=== PATIENT | female | born 1950 | race Caucasian/White ===

== ENCOUNTER → 2018-01-21 12:40 | Outpatient (CLI) | payer MEDICARE, OTHER, SELFPAY ==
--- NOTE | 2018-01-21 12:44 | DI.MRI.S_ITS ---
PROCEDURE: MR LUMBAR SPINE WO CON INDICATIONS: L4-5 HMP TECHNIQUE: Noncontrast sagittal T1 spin echo and T2 fast echo, sagittal STIR, axial T1 and T2 fast spin echo through the lumbar spine. In cases with scoliosis, additional coronal T2 fast spin echo may be performed. COMPARISON: [facility], , L-SPINE WITHOUT CONTRAST, 01/14/2016, 10:57. FINDINGS: Image quality: Excellent. Alignment and Curvature: There is normal bony alignment. Bone Marrow: Marrow is of normal overall signal. No acute vertebral body compression fractures. Spinal Cord: Conus medullaris terminates at the T12 level. Visualized cord demonstrates normal signal and size. Paraspinous Soft Tissues: No paravertebral masses. Of note, there is moderate epidural lipomatosis from L2-S1 which is a new finding when compared with the study dated 01/14/16. This results in overall narrowing of the thecal sac throughout the lumbar spine. T12-L1: Mild disc desiccation and height loss. Small central disc protrusion which measures 5 mm in AP diameter and is unchanged in size when compared with the prior study dated 01/14/16. There is mild canal stenosis, unchanged from the prior study. Mild facet ligamentum flavum hypertrophy. No foraminal stenosis. L1-L2: Moderate disc desiccation and height loss. Moderate facet and ligamentum flavum hypertrophy. No canal stenosis. Mild bilateral neural foraminal narrowing. These findings are similar in extent to the study dated 01/14/16. L2-L3: Severe disc desiccation and height loss. Broad-based disc bulge. Severe facet ligamentum flavum hypertrophy. Severe canal stenosis. The degree of canal narrowing has increased when compared with the prior study. Moderates right foraminal narrowing which is increased when compared with the prior study. Unchanged mild left foraminal narrowing. L3-L4: Mild disc desiccation and height loss. Broad-based disc bulge. Moderate facet ligamentum flavum hypertrophy. Mild canal stenosis. Mild bilateral foraminal stenosis. These findings are unchanged when compared with the prior study. L4-L5: Severe disc desiccation and height loss. Broad-based disc bulge. Small posterior focal high intensity zone. 6 mm central disc protrusion is redemonstrated unchanged from the prior study. There is moderate canal stenosis, as before. Moderate bilateral neuroforaminal stenosis. The left foraminal narrowing has slightly increased when compared with the prior study. L5-S1: Mild disc desiccation and height loss. Broad-based disc bulge. Moderate facet ligamentum flavum hypertrophy. Epidural lipomatosis with moderate to severe canal stenosis. No foraminal stenosis. IMPRESSION: 1. Epidural lipomatosis extending from L2-S1 which is a new finding when compared with the prior study dated 01/14/16. This results in increased overall narrowing of the thecal sac. 2. Unchanged central disc protrusion at T12-L1 with resultant mild canal stenosis. 3. Broad-based disc bulge at L2-3 with resultant severe canal stenosis which is increased in extent when compared with the prior study. 4. Increased right L2-L3 foraminal stenosis now moderate in degree. 5. Stable appearance of the L4-L5 central disc protrusion with annular fibrosis tear and resultant moderate canal stenosis. 6. Slight increase in the left foraminal stenosis at L4-5 now moderate in degree. Dictated by: Amarilis Andujar M.D. on 01/21/2018 at 14:26 Approved by: Amarilis Andujar M.D. on 01/21/2018 at 15:22
== END ==
PROVIDERS: PCP Student in an Organized Health Care Education/Training Program; Visit Provider Physical Medicine & Rehabilitation
DX: M51.26 Other intervertebral disc displacement, lumbar region (principal); M48.05 Spinal stenosis, thoracolumbar region; M48.061 Spinal stenosis, lumbar region without neurogenic claudication
CPT/HCPCS: 72148; 99213

== ENCOUNTER 2018-01-27 10:41 | Outpatient (CLI) | payer MEDICARE, OTHER, SELFPAY ==
[2018-01-27] VITALS (14 sets, daily range): BP systolic 102–128; BP diastolic 50–76; PULSE 59–98; RESP 16–18; TEMP 36.3; O2SAT 96–100
--- NOTE | 2018-01-27 10:44 | DI.RAD.S_ITS ---
PROCEDURE: PAIN L/S TRANSFORAMINAL INJECT INDICATIONS: 67-year-old female with lumbar spine stenosis. FINDINGS: Fluoroscopic spot filming was performed to verify placement of spinal needles at the left L4-L5 level(s), as labeled on the films. Appropriate location(s) of the needle tip(s) was confirmed by injection of iodinated contrast. IMPRESSION: Fluoroscopic guidance for left L4-L5 nerve root injection. Dictated by: Curly Larson M.D. on 01/27/2018 at 15:34 Approved by: Curly Larson M.D. on 01/27/2018 at 15:35
--- NOTE | 2018-01-27 11:21 | P.PCN_ITS ---
Procedures Date/Time Date of procedure: 01/27/18 Time of procedure: 11:16 General Procedure description: PREOP DIAGNOSIS 1. FORMAINAL STENOSIS WITH LE SYMPTOMS POST OP DIAGNOSIS 1. FORMAINAL STENOSIS WITH LE SYMPTOMS PROCEDURES 1. FLUOROSCOPICALLY GUIDED CONTRAST CONTROLLED TRANSFORAMINAL EPIDURAL STEROID INJECTION - RIGHT L4/5 TFESI PHYSICIAN: Berry Shaw DO INDICATIONS: Amarilis is referred by Dr. Pham for treatment of Foraminal Stenosis with Right LE Symptoms FINDINGS Foraminal Nerve Root Compression secondary to disc disease and facet hypertrophy DESCRIPTION OF PROCEDURE: Following denial of allergy and review of potential side effects and complications, including, but not necessarily limited to, infection, allergic reaction, local tissue breakdown, stroke, temporary or permanent nerve injury, paralysis, and possible , the patient indicated that the patient understood and agreed to proceed. An informed consent document was signed by the patient, witnessed by a nurse, and placed in the patient's chart. Additionally, other treatment options including medications, modalities, and physical therapy were reviewed with the patient. Per the patient request, IV conscious sedation was administered via 4mg of Versed to patient comfort. The patient's vital signs were monitored throughout the procedure by both the nurse and the physician without significant fluctuation. The patient remained conversant throughout the procedure. In the prone position following sterile prep and drape of the lumbar region, the Right L4/5 posterior neuroforamen was identified fluoroscopically. The skin was anesthetized via a 25-gauge 1.5-inch needle with 1% lidocaine solution. At this point, a 25-gauge 3.5-inch spinal needle was atraumatically introduced and advanced under fluoroscopic guidance through the posterior Right L4/5 neuroforamen to approximately the anterior aspect of the canal. Depth was confirmed on lateral view. Following negative aspiration, injection of approximately 1.5 cc of Isovue 200 under live fluoroscopy in the AP view confirmed excellent flow along the nerve root, into the epidural space without vascular or intrathecal uptake observed Radiological data, including multiple fluoroscopic views of the lumbosacral spine, reveal a spinal needle at the Left L4/5 posterior neuroforamen. Subsequent views show flow of contrast material flowing superiorly and inferiorly along the nerve root confirming epidural flow. Subsequently, a test dose of 1.5 cc of 1% lidocaine solution was administered and patient was observed for two minutes for signs or symptoms of complications , including abdominal pain, shortness of breath, bilateral upper or lower extremity weakness, nausea and vomiting, prior to steroid injection. At this point, a total of 3 cc or 20 mg of dexamethasone and 80mg Depo Medrol was injected without incident. The patient was then transferred to the recovery area where they were observed for an appropriate time after the injection. The patient reported a VAS score of 7 prior to the procedure and a post-procedure VAS of 0. Total Fluoroscopy Time: 20.9 seconds Total Conscious Sedation Time: 24min POST OP INSTRUCTIONS The patient was provided a Pain Log to continue to record their response to the target-specific procedure prior to follow-up visit with their referring physician. Additionally, specific post-injection care instructions and a contact number to our office were provided if concerns arise regarding possible complications associated with the procedure are suspected. Berry Shaw DO Complications: none
[2018-01-27] MEDS: MIDAZOLAM 5 MG/5 ML VIAL IV (11:30)
[2018-01-27] MEDS: methylPREDNISolone acetate 80 MG/ML VIAL INJ (11:38)
[2018-01-27] MEDS: IOPAMIDOL 15 ML VIAL 3 ML INJ (11:38)
[2018-01-27] MEDS: DEXAMETHASONE 10 MG/ML VIAL 20 MG INJ (11:38)
[2018-01-27] MEDS: BUPIVACAINE 0.25% (PF) 30 ML VIAL INJ (11:38)
--- NOTE | 2018-01-27 13:52 | PC.NURSE ---
pt's right leg was still a little uncooperative but she was able to lift it prior to discharge, she needed to leave [place] ferry. I took her out to her drivers car and helped her in the vehicle, she is going to stay in her car for the ride home.
== END 2018-01-27 13:54 ==
LOC: RAD 10:42
PROVIDERS: PCP Student in an Organized Health Care Education/Training Program; Visit Provider Physical Medicine & Rehabilitation
DX: M48.061 Spinal stenosis, lumbar region without neurogenic claudication (principal); M51.26 Other intervertebral disc displacement, lumbar region; M54.16 Radiculopathy, lumbar region; M51.36 Other intervertebral disc degeneration, lumbar region
CPT/HCPCS: 64483; 99152; J1040; J1100; J2250

== ENCOUNTER → 2018-03-25 09:39 | Outpatient (CLI) | payer MEDICARE, OTHER, SELFPAY | PROVIDERS: PCP Student in an Organized Health Care Education/Training Program; Visit Provider Orthopaedic Surgery | DX: G56.22 Lesion of ulnar nerve, left upper limb (principal) | CPT/HCPCS: 95886; 95909 ==

== ENCOUNTER → 2018-10-30 09:40 | Outpatient (CLI) | payer MEDICARE, OTHER, SELFPAY ==
--- NOTE | 2018-10-30 | DI.MRI.S_ITS ---
PROCEDURE: MR THORACIC SPINE WO CON INDICATIONS: BACK PAIN/PRE OP SCAN FOR SPINAL CORD STIMULATOR TECHNIQUE: Noncontrast sagittal T1 spine echo and T2 fast spin echo, sagittal STIR, axial T1 and T2 fast spin echo through the thoracic spine. COMPARISON: None. FINDINGS: Image quality: Alignment and Curvature: There is normal bony alignment. Bone Marrow: Minimal reactive endplate changes adjacent to the T6-T7, L1-L2 and L2-L3 discs. No acute vertebral body compression fractures. Spinal Cord: Visualized spinal cord is normal in size and signal. Paraspinous Soft Tissues: No paravertebral masses. Miscellaneous: Mild loss of disc signal and height of the T3-T4, T4-T5, T5 and T6, T6-T7, T7-T8, T8-T9, and T12-L1 discs. Mild L1-L2 moderate L2-L3 facet arthropathy. Central T12-L1 disc extrusion is noted extruded disc material extends superiorly along the posterior margin of the T12 vertebral body. Mild, diffuse L1-L2 disc bulge. Moderate, diffuse L2-L3 disc bulge. Mild T12-L1 and L1-L2 central canal narrowing. Moderate L2-L3 central canal narrowing. No significant neural foraminal narrowing. No neural impingement. IMPRESSION: 1. Multilevel degenerative disease. 2. Multilevel facet arthropathy. 3. Central T12-L1 disc extrusion. 4. Mild T12-L1 and L1-L2 Central canal narrowing. Moderate L2-L3 central canal narrowing. 5. No significant neural foraminal narrowing 6. No neural impingement. Dictated by: Nohelia Valdez MD, PhD on 11/01/2018 at 11:42 Approved by: Nohelia Valdez MD, PhD on 11/01/2018 at 12:41
== END ==
PROVIDERS: PCP Student in an Organized Health Care Education/Training Program; Visit Provider Neurological Surgery
DX: M54.9 Dorsalgia, unspecified (principal); M51.34 Other intervertebral disc degeneration, thoracic region; M51.36 Other intervertebral disc degeneration, lumbar region; M51.25 Other intervertebral disc displacement, thoracolumbar region; M48.061 Spinal stenosis, lumbar region without neurogenic claudication; M48.05 Spinal stenosis, thoracolumbar region; M47.816 Spondylosis without myelopathy or radiculopathy, lumbar region
CPT/HCPCS: 72146

== ENCOUNTER → 2020-05-30 10:23 | Outpatient (CLI) | payer MEDICARE, OTHER, SELFPAY ==
--- NOTE | 2020-05-30 | DI.RAD.S_ITS ---
PROCEDURE: FL BARIUM SWALLOW INDICATIONS: GLOBUS PHARYNGEUS COMPARISON: None. FINDINGS: Function: There is normal esophageal peristalsis. There was episodic moderate spontaneous and elicited gastroesophageal reflux. There is a moderate size sliding hiatal hernia Morphology: Air-contrast images demonstrate normal mucosal morphology. Single contrast views show no esophageal strictures, extrinsic mass effects, or diverticula. Limited images of the stomach demonstrate normal appearance. IMPRESSION: Moderate-size sliding hiatal hernia seen on both single and double contrast views. No esophageal stricture is seen, nor are there esophageal erosions or ulcerations. The Schatzki ring is relatively prominent in this patient, smoothly marginated, but was not associated with a persistent narrowing over the course of the examination.. Dictated by: Erasto Penaloza M.D. on 05/30/2020 at 14:32 Approved by: Erasto Penaloza M.D. on 05/30/2020 at 14:54
== END ==
PROVIDERS: PCP Student in an Organized Health Care Education/Training Program; Referring Provider Student in an Organized Health Care Education/Training Program; Visit Provider Oral & Maxillofacial Surgery
DX: F45.8 Other somatoform disorders (principal); K21.9 Gastro-esophageal reflux disease without esophagitis; K44.9 Diaphragmatic hernia without obstruction or gangrene
CPT/HCPCS: 74220

== ENCOUNTER 2022-11-20 09:58 | Outpatient (CLI) | payer MEDICARE, OTHER, SELFPAY | END 2022-11-24 10:07 | disposition home or self-care (01) | LOC: PHYS 09:59 | PROVIDERS: Family Provider Student in an Organized Health Care Education/Training Program; PCP Student in an Organized Health Care Education/Training Program; Referring Provider Orthopaedic Surgery; Visit Provider Orthopaedic Surgery | DX: G56.22 Lesion of ulnar nerve, left upper limb (principal) | CPT/HCPCS: 95886; 95910 ==

== ENCOUNTER → 2024-06-30 09:58 | Outpatient (CLI) | payer MEDICARE, OTHER, SELFPAY | PROVIDERS: Family Provider Student in an Organized Health Care Education/Training Program; PCP Student in an Organized Health Care Education/Training Program; Referring Provider Anesthesiology Pain Medicine; Visit Provider Anesthesiology Pain Medicine | DX: M54.12 Radiculopathy, cervical region (principal) | CPT/HCPCS: 95886; 95910 ==